=== PATIENT | male | born 1935 | race Caucasian/White ===

== ENCOUNTER → 2017-05-18 | Day surgery (SDC) | payer MEDICARE ==
[~2017-05-18] VITALS: Ht 180.3 cm; Wt 85.0 kg
[~2017-05-18] MED LIST: 0.9% Sodium Chloride 1,000 ML IV ONE; ASPI-973 PO; BIOT300T2 PO; CLON0.3T PO; FUR20 PO; GINK60TA2 PO; GLIM2TAB PO; HYDR-3940 PO; HYOS-8 PO; Heparin 1,000 Unit/mL 10 mL Inj ONE; Heparin 1,000 Units/500 mL NS Premix IV ONE; Heparin 10,000 Unit/1,000 mL NS Premix IV ONE; KRIL1CAP23 PO; LORA1TAB PO; MESA1.2T2 PO; METF500T4 PO; OMPR20CCR PO; PANT500T PO; POTA99TA3 PO; PSYL0.4C PO; SIMV40TA5 PO; SPIR25TA3 PO; TAMS0.4C29 PO; TRIA10.8 NS; UBID100C PO; VIT1CAPS8 PO; VITA400C19 PO; ZINC50TA4 PO
[2017-05-18 07:00] VITALS: BP 128/65; PULSE 103; RESP 23; O2SAT 96
--- NOTE | 2017-05-18 07:00 | NUR ---
ADMISSION NOTE MALE PT ADMITTED FOR HEART CATH. DISCUSSED PLAN OF CARE WITH PT . SEE ADMIT AND FLOW SHEET
[2017-05-18 07:13] LABS: BASOPHILS % (AUTO) 0.1 % (0-3); EOSINOPHILS % (AUTO) 2.6 % (0-5); Mean Corpuscular Hemoglobin 29.7 pg (27.0-35.0); Mean Corpuscular Volume 86.5 fL (81-100); NEUTROPHILS % (AUTO) 40.1 % (40-74); Platelet Count 233 bil/L (150-400)
[2017-05-18 07:42] LABS: INR 0.93 ratio
--- NOTE | 2017-05-18 08:45 | NUR ---
CASE CANCELLED FOR 05/18 TO BE RESCHEDULED FOR SUNDAY 05/20. INSTURCTIONS GIVEN FOR MEDICATION HOLDING IV REMOVED. HOME WITH FAMILY
[2017-05-20] VITALS (8 sets, daily range): BP systolic 115–146; BP diastolic 68–91; PULSE 80–87; RESP 13–22; O2SAT 96
== END | disposition home or self-care (01) ==
LOC: SOUO 00:43
PROVIDERS: ATTEND Internal Medicine
DX: R94.39 Abnormal result of other cardiovascular function study (principal); Z53.9 Procedure and treatment not carried out, unspecified reason; E78.5 Hyperlipidemia, unspecified; R42 Dizziness and giddiness

== ENCOUNTER → 2017-05-20 | Day surgery (SDC) | payer MEDICARE ==
[2017-05-20] VITALS (12 sets, daily range): BP systolic 114–146; BP diastolic 63–91; PULSE 81–89; RESP 12–22; O2SAT 95–97
[~2017-05-20] MED LIST changes: -0.9% Sodium Chloride 1,000 ML IV ONE; +0.9% Sodium Chloride 1,000 ML IV SCH; +Nitroglycerin 50,000 mcg/250 mL D5W Premix IV ONE; +fentaNYL-PF 50 mCg/mL 2 mL Inj ONE
[2017-05-20 08:06] LABS: BASOPHILS % (AUTO) 0.1 % (0-3); EOSINOPHILS % (AUTO) 3.1 % (0-5); MONOCYTES % (AUTO) 8.3 % (4-12); Mean Corpuscular Volume 86.1 fL (81-100); NEUTROPHILS % (AUTO) 45.9 % (40-74); Platelet Count 193 bil/L (150-400)
--- NOTE | 2017-05-20 08:15 | NUR ---
Admitted for a heart cath for history of feeling light headed and a + stress test. Pt understands today's procedure and plan of care. NSR no ectopy/no chest pain or pressure.
--- NOTE | 2017-05-20 14:21 | CS94 ---
[address] [address] DIAGNOSTIC CARDIAC CATHETERIZATION PATIENT: RAJEEV CONDON : 1935 MR#: [id number] ADMIT: 05/20/2017 JOB ID: [id number] SERVICE DATE: 05/20/2017 PROCEDURES PERFORMED: Left heart catheterization with coronary angiography. INCOMPLETE DICTATION: Dictation ends here.
--- NOTE | 2017-05-20 14:51 | CS94 ---
[address] [address] DIAGNOSTIC CARDIAC CATHETERIZATION PATIENT: RAJEEV CONDON : 1935 MR#: [id number] ADMIT: 05/20/2017 JOB ID: [id number] SERVICE DATE: 05/20/2017 PROCEDURE PERFORMED: Left heart catheterization with coronary angiography. INDICATIONS: This is an 82-year-old man with recent episodes of dizziness and fatigue and abnormal stress test showing inferior septal ischemia. He presents for further assessment by cardiac catheterization. DESCRIPTION OF PROCEDURE: Informed consent was obtained. Patient brought to the catheterization laboratory. Bilateral groins were prepped and draped in usual sterile fashion. The right femoral artery was anesthetized with lidocaine using modified Seldinger technique and a micropuncture kit, access was obtained and a 5-[place] sheath was advanced. Given tortuosity, a long 5-[place] he could not be advanced; however we were able to pass a 5-[place] JR4 catheter and this was advanced over a wire and used to cannulate the right coronary and angiographic views obtained. Unfortunately due to tortuosity, a long sheath could not be advanced nor could a JL4 be advanced, therefore the sheath was sutured in place and access was obtained via modified Seldinger technique with a micropuncture kit in the left femoral artery. We are able to pass a long 5-[place] sheath which facilitated passage ultimately of a JL5 catheter which was then used to cannulate the left coronary artery. The JL catheter also went into the left ventricle with fluoroscopic guidance. Therefore this facilitated measurement of left ventricular pressure tracings and following pullback, aortic pressure tracings. The 5-[place] JL5 catheter was used to cannulate the left coronary artery. Angiographic views obtained. The case was ended. The catheter was removed. The long 5-[place] sheath was removed immediately and hemostasis achieved with pneumatic compression. Shortly thereafter the additional 5-[place] sheath in right femoral artery was removed. There were no complications. FINDINGS: 1. Left main: This vessel was a fairly short vessel with no significant disease appreciated. Some mild tapering distally. 2. Circumflex artery. This appears to be a dominant vessel. It gives rise to a first obtuse marginal branch which has serial stenoses; the first one appearing in the range of 70% with the second appearing in the range of approximately 50% to 60%. The vessel continues down, giving rise to terminal branches and left PDA for which there is a high-grade stenosis. It may even be subtotaled, but PDA does extend down with slow filling to the apex. 3. Left anterior descending artery. This vessel has a proximal stenosis estimated in the range of 95%. The mid segment also has a tubular area of stenosis estimated in the range of at least 70% but perhaps 80% prior to the continuation of the vessel which appears to have no significant stenoses. There is TI-II flow appreciated in the left anterior descending artery. The principle diag supplies an intermediate distribution and does not have critical disease but does have ostial disease estimated in the range of 50% with additional stenosis in the proximal segment. 4. Right coronary artery. This vessel appears to be nondominant but is also occluded in mid segment with collateralization to the distal segments. HEMODYNAMICS: Aortic pressure. End-diastolic pressure around 10. No gradient on pullback. Heart rates in the range of 70s-80s. 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 The right coronary appears to be a nondominant vessel which is occluding collateralized. Hemodynamics as noted. Given the findings with multiple stenoses appreciated, the patient is referred for consideration of bypass surgery. ZEINA
--- NOTE | 2017-05-20 15:17 | NUR ---
Recovery completed post heart cath - follow up to be arranged with Dr Fontana in [place] - Dr Fontana's office is to contact patient at his home to schedule an intake for a possible CABG. Bilateral femoral/venous access sites are sealed and soft and non tender at time of D/C from [facility]. Patient driven home with his friend, "Deven".
== END | disposition home or self-care (01) ==
LOC: SOUO 00:19
PROVIDERS: ATTEND Internal Medicine
DX: I25.10 Atherosclerotic heart disease of native coronary artery without angina pectoris (principal); Z79.82 Long term (current) use of aspirin; E78.5 Hyperlipidemia, unspecified
CPT/HCPCS: 36415; 80048; 85025; 93458; 99152; 99153; C1769; C1894; J1200; J1644; J2060; J2250; J3010; J7030; Q9967